=== PATIENT | female | born 1940 | race Two or more races ===

== ENCOUNTER 2021-02-27 20:55 | Emergency (ER) | payer OTHER ==
[~2021-02-27] VITALS: Ht 162.6 cm; Wt 88.5 kg
[2021-02-27] MEDS ORDERED: KETOROLAC TROMETHAMINE 60 MG/2 ML VIAL IM ONE (21:30)
[2021-02-27] MEDS ORDERED: IBUPROFEN400 MG PO (22:55)
[2021-02-28 02:34] VITALS: BP 145/95
== END 2021-02-27 23:00 | disposition home or self-care (01) ==
LOC: ER 21:02
DX: R51.9 Headache, unspecified (principal); M13.811 Other specified arthritis, right shoulder; I10 Essential (primary) hypertension; Z85.89 Personal history of malignant neoplasm of other organs and systems
CPT/HCPCS: 70450; 73030; 99283; J1885

== ENCOUNTER 2021-06-12 20:49 | Observation (INO) | payer OTHER ==
[~2021-06-12] VITALS: Ht 162.6 cm; Wt 88.5 kg
[~2021-06-12 20:49] MED LIST: IBUPROFEN400 MG PO
[2021-06-12] MEDS ORDERED: SODIUM CHLORIDE 0.9% 1000ML 1,000 ML IV SCH (21:45)
[2021-06-12 21:58] LABS: BASOPHILS # (AUTO) 0.1 (0.0-0.1); BASOPHILS % 0.9 % (0.0-1.0); EOSINOPHILS # (AUTO) 0.2 (0.0-0.4); EOSINOPHILS % 1.9 % (0.0-6.0); HEMATOCRIT 40.2 % (34.2-44.1); HEMOGLOBIN 13.4 g/dL (12.0-16.0); LYMPHOCYTES # (AUTO) 2.8 (1.0-3.2); LYMPHOCYTES % 35.5 % (18.0-39.1); MEAN CORPUSCULAR HEMOGLOBIN 29.6 pg (28-32); MEAN CORPUSCULAR HGB CONC 33.3 g/dL (31-35); MEAN CORPUSCULAR VOLUME 88.7 fL (81-99); MONOCYTES # (AUTO) 0.9 (0.2-0.8); MONOCYTES % 11.1 % (4.4-11.3); NEUTROPHILS % 50.4 % (38.7-80.0); PLATELET COUNT 328 x10e3/uL (140-360); RED BLOOD COUNT 4.53 x10e6/uL (3.6-5.1); RED CELL DISTRIBUTION WIDTH 13.1 % (11.7-14.4)
[2021-06-12] MEDS ORDERED: DILTIAZEM HCL 5 MG/ML 5 ML VIAL IV ONE (22:00)
[2021-06-12 22:15] LABS: ALBUMIN/GLOBULIN RATIO 0.9 (0.8-2.0); ANION GAP 18.4 mmol/L (8-16); CALCIUM 9.7 mg/dL (8.4-10.2); CREATININE, SERUM 0.74 mg/dL (0.57-1.11); POTASSIUM 4.4 mmol/L (3.5-5.1)
[2021-06-12 22:32] LABS: THYROID STIMULATING HORMONE 1.168 uIU/mL (0.350-4.940)
[2021-06-12 22:32] LABS: CLARITY,URINE SL CLOUDY (CLEAR); COLOR,URINE YELLOW (YELLOW); KETONES,URINE 2+ (NEGATIVE); LEUKOCYTE ESTERASE ,URINE TRACE (NEGATIVE); NITRITE,URINE NEGATIVE (NEGATIVE); PROTEIN,URINE DIPSTICK 1+ (NEGATIVE); URINE UROBILINOGEN 1 mg/dL (0.2 - 1)
[2021-06-12 22:36] LABS: AMORPHOUS SEDIMENT,URINE MODERATE (FEW); BACTERIA,URINE FEW /HPF; EPITHELIAL CELLS,URINE FEW /LPF; RBC,URINE 0-5 /HPF (0-5); WBC,URINE (MAN) 0-5 /HPF (0-5)
[2021-06-12] MEDS ORDERED: DILTIAZEM HCL 60 MG TAB PO SCH (23:15)
[2021-06-12] MEDS ORDERED: ASPIRIN 81 MG CHEW TAB PO ONE (23:30)
[2021-06-13] VITALS (9 sets, daily range): BP systolic 110–139; BP diastolic 41–78
[2021-06-13] MEDS ORDERED: LOSARTAN POTASS25 MG PO (04:38)
[2021-06-13] MEDS ORDERED: SODIUM CHLORIDE 0.9% 50ML 50 ML ONE (07:11)
[2021-06-13] MEDS ORDERED: IOPAMIDOL 370 MG/ML 200 ML INFUS..BTL INJ ONE (07:11)
[2021-06-13] MEDS ORDERED: TRAZODONE HCL100 MG PO (09:18)
[2021-06-13] MEDS ORDERED: PLAQUENIL200 MG PO (09:18)
[2021-06-13 10:06] LABS: CREATINE KINASE MB 2.6 ng/mL (0-5.0)
[2021-06-13 11:50] LABS: BASOPHILS # (AUTO) 0.1 (0.0-0.1); BASOPHILS % 0.8 % (0.0-1.0); EOSINOPHILS # (AUTO) 0.2 (0.0-0.4); HEMOGLOBIN 13.5 g/dL (12.0-16.0); LYMPHOCYTES # (AUTO) 2.9 (1.0-3.2); LYMPHOCYTES % 38.1 % (18.0-39.1); MEAN CORPUSCULAR HEMOGLOBIN 29.8 pg (28-32); MEAN CORPUSCULAR HGB CONC 33.8 g/dL (31-35); MEAN CORPUSCULAR VOLUME 88.3 fL (81-99); MONOCYTES # (AUTO) 0.8 (0.2-0.8); MONOCYTES % 10.1 % (4.4-11.3); NEUTROPHILS # (AUTO) 3.7 (2.1-6.9); NEUTROPHILS % 48.9 % (38.7-80.0); PLATELET COUNT 317 x10e3/uL (140-360); RED BLOOD COUNT 4.53 x10e6/uL (3.6-5.1); RED CELL DISTRIBUTION WIDTH 13.5 % (11.7-14.4)
[2021-06-13 11:59] LABS: ANION GAP 17.5 mmol/L (8-16); CALCIUM 9.2 mg/dL (8.4-10.2); CREATININE, SERUM 0.65 mg/dL (0.57-1.11); POTASSIUM 4.5 mmol/L (3.5-5.1)
[2021-06-13] MEDS: CARVEDILOL 12.5 MG TAB PO SCH (16:26)
[2021-06-13 16:27] LABS: CREATINE KINASE MB 2.4 ng/mL (0-5.0)
[2021-06-13] MEDS ORDERED: TRAZODONE HCL 50 MG TAB PO SCH (21:00)
[2021-06-14] VITALS: BP 125/74
[2021-06-14 04:00] VITALS: BP 117/53
[2021-06-14 05:59] LABS: BASOPHILS # (AUTO) 0.1 (0.0-0.1); BASOPHILS % 0.8 % (0.0-1.0); EOSINOPHILS # (AUTO) 0.2 (0.0-0.4); EOSINOPHILS % 3.9 % (0.0-6.0); HEMATOCRIT 35.5 % (34.2-44.1); HEMOGLOBIN 12.1 g/dL (12.0-16.0); LYMPHOCYTES # (AUTO) 2.1 (1.0-3.2); LYMPHOCYTES % 34.2 % (18.0-39.1); MEAN CORPUSCULAR HGB CONC 34.1 g/dL (31-35); MEAN CORPUSCULAR VOLUME 88.1 fL (81-99); MONOCYTES # (AUTO) 0.5 (0.2-0.8); MONOCYTES % 8.9 % (4.4-11.3); NEUTROPHILS # (AUTO) 3.2 (2.1-6.9); PLATELET COUNT 306 x10e3/uL (140-360); RED BLOOD COUNT 4.03 x10e6/uL (3.6-5.1); RED CELL DISTRIBUTION WIDTH 13.2 % (11.7-14.4)
[2021-06-14 06:13] LABS: ANION GAP 11.1 mmol/L (8-16); CALCIUM 8.8 mg/dL (8.4-10.2); CREATININE, SERUM 0.61 mg/dL (0.57-1.11); MAGNESIUM 1.8 MG/DL (1.3-2.1); POTASSIUM 4.1 mmol/L (3.5-5.1)
[2021-06-14] MEDS: CARVEDILOL 12.5 MG TAB PO SCH (08:02)
[2021-06-14 08:12] VITALS: BP 122/58
[2021-06-14 09:00] VITALS: BP 122/58
[2021-06-14] MEDS ORDERED: APIXABAN 5 MG TABLET PO SCH (09:00)
[2021-06-14] MEDS ORDERED: LOSARTAN POTASSIUM 25 MG TAB PO SCH (09:00)
[2021-06-14 11:51] VITALS: BP 110/60
[2021-06-14 16:05] VITALS: BP 129/61
[2021-06-14] MEDS ORDERED: ELIQUIS5 MG PO (16:11)
[2021-06-14] MEDS ORDERED: COREG6.25 MG PO (16:12)
== END 2021-06-14 16:30 | disposition home or self-care (01) ==
LOC: ER 20:53 → ERHOLD 23:44 → MED/SURG3 06-13 03:23
PROVIDERS: ADMIT Internal Medicine; ATTEND Internal Medicine
DX: I48.0 Paroxysmal atrial fibrillation (principal); I16.0 Hypertensive urgency; Z79.01 Long term (current) use of anticoagulants; E66.9 Obesity, unspecified; Z68.33 Body mass index [BMI] 33.0-33.9, adult; Z20.822 Contact with and (suspected) exposure to COVID-19; E04.1 Nontoxic single thyroid nodule; K44.9 Diaphragmatic hernia without obstruction or gangrene; N20.0 Calculus of kidney; Z85.3 Personal history of malignant neoplasm of breast; M19.90 Unspecified osteoarthritis, unspecified site
CPT/HCPCS: 36415; 71045; 71260; 76536; 76705; 80048; 80053; 81001; 82550; 82553; 82948; 83735; 83880; 84443; 84484; 85025; 85379; 93005; 93306; 94799; 99284; G0378; J7030; Q9967; U0002

== ENCOUNTER 2021-10-06 10:17 | Emergency (ER) | payer OTHER ==
[~2021-10-06] VITALS: Ht 315 cm; Wt 88.5 kg
[~2021-10-06 10:17] MED LIST changes: +COREG6.25 MG PO; +ELIQUIS5 MG PO; +LOSARTAN POTASS25 MG PO; +PLAQUENIL200 MG PO; +TRAZODONE HCL100 MG PO
[2021-10-06 11:33] LABS: BASOPHILS # (AUTO) 0.1 (0.0-0.1); BASOPHILS % 0.9 % (0.0-1.0); EOSINOPHILS # (AUTO) 0.2 (0.0-0.4); EOSINOPHILS % 4.4 % (0.0-6.0); HEMATOCRIT 32.4 % (34.2-44.1); HEMOGLOBIN 10.2 g/dL (12.0-16.0); LYMPHOCYTES % 36.4 % (18.0-39.1); MEAN CORPUSCULAR HEMOGLOBIN 28.1 pg (28-32); MEAN CORPUSCULAR HGB CONC 31.5 g/dL (31-35); MEAN CORPUSCULAR VOLUME 89.3 fL (81-99); MONOCYTES # (AUTO) 0.5 (0.2-0.8); MONOCYTES % 9.1 % (4.4-11.3); NEUTROPHILS # (AUTO) 2.7 (2.1-6.9); PLATELET COUNT 308 x10e3/uL (140-360); RED BLOOD COUNT 3.63 x10e6/uL (3.6-5.1); RED CELL DISTRIBUTION WIDTH 14.1 % (11.7-14.4)
[2021-10-06 11:59] LABS: INR 1.1; PROTHROMBIN TIME 15.2 seconds (11.9-14.5)
[2021-10-06 12:00] LABS: PARTIAL THROMBOPLASTIN TIME 27.5 seconds (23.8-35.5)
[2021-10-06 12:10] LABS: ALANINE AMINOTRANSFERASE 13 IU/L (0-55); ALBUMIN 3.4 g/dL (3.5-5.0); ALBUMIN/GLOBULIN RATIO 0.9 (0.8-2.0); ALKALINE PHOSPHATASE 68 IU/L (40-150); ANION GAP 12.2 mmol/L (8-16); BLOOD UREA NITROGEN 20 mg/dL (7-26); BUN/CREATININE RATIO 30 (6-25); CALCIUM 8.6 mg/dL (8.4-10.2); CARBON DIOXIDE 25 mmol/L (22-29); CHLORIDE 104 mmol/L (98-107); CREATINE KINASE 161 IU/L (29-168); CREATININE, SERUM 0.67 mg/dL (0.57-1.11); GLUCOSE 127 mg/dL (74-118); POTASSIUM 4.2 mmol/L (3.5-5.1); SODIUM 137 mmol/L (136-145)
[2021-10-06 13:58] LABS: BACTERIA,URINE FEW /HPF; CLARITY,URINE CLEAR (CLEAR); COLOR,URINE YELLOW (YELLOW); EPITHELIAL CELLS,URINE FEW /LPF; KETONES,URINE NEGATIVE (NEGATIVE); LEUKOCYTE ESTERASE ,URINE NEGATIVE (NEGATIVE); NITRITE,URINE NEGATIVE (NEGATIVE); PROTEIN,URINE DIPSTICK NEGATIVE (NEGATIVE); RBC,URINE 0-5 /HPF (0-5); URINE UROBILINOGEN 0.2 mg/dL (0.2 - 1); WBC,URINE (MAN) 0-5 /HPF (0-5)
== END 2021-10-06 13:25 | disposition home or self-care (01) ==
LOC: ER 11:04
DX: I10 Essential (primary) hypertension (principal); R51.9 Headache, unspecified; M54.2 Cervicalgia; Z20.822 Contact with and (suspected) exposure to COVID-19; Z85.89 Personal history of malignant neoplasm of other organs and systems
CPT/HCPCS: 36415; 70450; 71045; 72125; 80053; 81001; 82550; 82553; 84484; 85025; 85610; 85651; 85730; 99284; U0002